=== PATIENT | female | born 1935 | race Caucasian/White ===

== ENCOUNTER → 2016-03-12 | Outpatient (CLI) | payer MEDICARE, OTHER ==
--- NOTE | 2016-03-12 14:07 | REP ---
Clinical: Preoperative assessment . Comparison: 09/09/2014 . Technique: PA and lateral. Findings: The mediastinum and cardiac silhouette are normal. The lung epstien are clear and without acute consolidation, effusion, or pneumothorax. Previously noted left lung nodule is unchanged. The skeletal structures are intact and normal. Impression: 1. No acute cardiopulmonary process. Left lung nodule unchanged. Signed by Hay Hawk MD 03/12/2016 01:58 P
[2016-03-12 14:08] LABS: ALBUMIN 3.8 GM/DL (3.2-5.2); ALBUMIN/GLOBULIN RATIO 1.27 (1.00-1.93); BILIRUBIN,TOTAL 0.5 MG/DL (0.2-1.0); CALCIUM LEVEL 8.6 MG/DL (8.8-10.2); CREATININE FOR GFR 1.13 MG/DL (0.55-1.02); GLOMERULAR FILTRATION RATE 49.1 (>32); POTASSIUM SERUM 4.5 MEQ/L (3.5-5.1); TOTAL PROTEIN 6.8 GM/DL (6.4-8.2)
--- NOTE | 2016-03-13 09:20 | ECGEPIP ---
Stationary ECG Study [facility] Test Date: 2016-03-12 Pat Name: ERIKA SOLIMAN Department: Room: - Gender: F Director Digital Communications: : 1935 Requested By: STROM Hurd Order Number: [id number] Reading MD: Arnel Tidwell Measurements Intervals [place] Rate: 67 P: 63 DC: 172 QRS: -25 QRSD: 97 T: 77 QT: 406 QTc: 430 Interpretive Statements SINUS RHYTHM BORDERLINE LEFT AXIS DEVIATION VOLTAGE CRITERIA FOR LVH NONSPECIFIC T-WAVE ABNORMALITY Comparison tracing not on file Electronically Signed On 03-13-2016 9:20:06 EST by Arnel Tidwell
== END ==
LOC: M LAB 13:08
PROVIDERS: ATTEND Ophthalmology
DX: Z01.812 Encounter for preprocedural laboratory examination (principal); H25.13 Age-related nuclear cataract, bilateral

== ENCOUNTER → 2016-03-29 | Day surgery (SDC) | payer MEDICARE, OTHER ==
--- NOTE | 2016-03-22 08:19 | CR ---
DATE OF CONSULTATION: 03/21/[address] Jose Raul Elam for left cataract extraction scheduled 03/29/2016 at [facility]. Dear Dr. Elam: Thank you for asking me to see Ms. Reyna Grewal in consultation prior to her cataract extractions. As you know, Ms. Grewal is an 80-year-old female with a past medical history of nonischemic dilated cardiomyopathy. Patient reports that she has been in her usual state of health but has found that her dyspnea and chest tightness are much improved since she was recently placed on Ranexa by cardiology. She reports that she is very active, doing her own laundry, mopping, vacuuming, grocery shopping, light yard work. Patient has a diagnosis of mild chronic obstructive pulmonary disease (COPD). She has Advair. She was using it irregularly but is now using it only as needed as her dyspneic symptoms are much improved on the Ranexa. Patient reports multiple stressors living with her as they age and have more challenges. She is excited that her daughter will be living next door to her on her property. The patient is hard of hearing. She has refused a hearing evaluation. Patient has had a decline in her eye vision and looks forward to her eye surgery. Patient denies any fevers or chills, nausea, vomiting, change in bowels, new rashes. REVIEW OF SYSTEMS: Otherwise, negative. PAST MEDICAL HISTORY: 1. Hypertension. 2. Heel spurs. 3. Total abdominal hysterectomy-bilateral salpingo-oophorectomy (MATEO-BSO) secondary to menorrhagia. 4. G5, P5. 5. Osteoarthritis (OA), degenerative joint disease (DJD). 6. Sinus allergies. 7. Adenomatous colonic polyp 10/2005 with recommendation to repeat 3 years, but followups have been refused by patient. Repeat colonoscopy 10/13/2015 showed polyps times [address] Lupe Peña with recommendation to repeat colonoscopy 3 years. 8. Plantar fasciitis. 9. Nonischemic dilated cardiomyopathy. Follows with [facility] with last appointment being 02/29/2016, at which point patient was found to be stable with recommendation to recheck in 6 months. Evaluation has included cardiac catheterization August 2015, which revealed nonocclusive coronary artery disease (CAD). Patient's ejection fraction was found to be 45%. 10. Mild obstructive pulmonary impairment. 10/2013 spirometry showing an FEV1 of 1.29, which was 70% of predicted, and a ratio of FEV1 to FVC of 0.63. 11. Lung nodules initially seen September [address] 04/2015 showing no change and consideration of a repeat chest CT 1 year. 12. Normal sleep study 12/15/2013. 13. Cataracts. PATIENT'S MEDICATIONS: - Advair Diskus 100/50 one inhaled twice a day as needed - baby aspirin daily - atorvastatin 40 mg daily - calcium plus D daily - carvedilol 12.5 by mouth twice a day - Benadryl as needed allergies - Losartan 50 mg daily - Pro Air two puffs four times a day as needed - Ranexa 500 mg by mouth twice a day - vitamin D3, 1000 international units daily ALLERGIES: Patient has no known drug allergies. SOCIAL HISTORY: Retired. . Never smoked. No alcohol. FAMILY HISTORY: Father of heart disease in his 60s. Mother had Alzheimer's and osteoporosis. A son had stomach cancer. A daughter had hypertension. PHYSICAL EXAM: She is a thin, elderly female, appearing younger than her stated age. Her weight is 141 with a body mass index (BMI) of 26.2. Blood pressure 142/86. Her heart rate is 74. Her oxygen saturation is 96%. HEENT: Examination is benign. She does wear eyeglasses. She is slightly hard of hearing. Her head is normocephalic. Pupils equal, reactive to light. Extraocular movements intact. Conjunctivae are not injected. Sclerae anicteric. Vision grossly normal. Tympanic membranes are slightly scarred bilaterally. She has upper and lower dentures. Posterior pharynx without inflammation. Neck is supple. No thyromegaly, jugular venous distention (JVD), carotid bruits. Respiratory: Slight decrease in breath sounds throughout. Some mild kyphosis. Breast: Exam deferred. Cardiovascular: Regular rate, rhythm. No significant murmur, rub, gallop. Genitourinary ()/Abdomen: Normoactive bowel sounds. Soft, nontender. No hepatosplenomegaly. Musculoskeletal: Some OA changes at the distal interphalangeal (DIP) joints. No pitting edema. No clubbing or cyanosis. Dermatologic: Multiple skin tags. Small seborrheic keratosis. Neurologically: Alert and oriented. Cranial nerves II-XII are intact. LABORATORY DATA: 03/12/2016 [facility]: Hemoglobin 13.7. Normal collagen function. Med profile: BUN and creatinine are 30 and 1.3 with a GFR of 49. Calcium slightly low at 8.6. Normal liver panel. On 12/20/2015, she had a normal CBC, magnesium, med profile, TSH, urinalysis, lipid. Total cholesterol was 210. Patient's chest x-ray 03/12/2016: No acute cardiopulmonary disease. Left lung nodule, unchanged as compared to 09/09/2014. EKG 03/12/2016: Normal sinus rhythm. Rate of 67. Left axis deviation at -25 degrees. Borderline left ventricular hypertrophy (LVH). No significant change compared to previous EKG. IMPRESSION: Ms. Miriam Grewal, 80-year-old female, multiple cardiovascular risk factors, including nonocclusive coronary artery disease, hyperlipidemia, hypertension, age, and family history but has no signs or symptoms indicative of cardiovascular ischemia and is very active for her age. Patient is felt to be at low risk for cardiovascular complications from the proposed surgical intervention, which can be further minimized by the following: PROBLEMS: 1. Nonischemic cardiomyopathy. She should take her Ranexa and carvedilol morning of surgery. I have recommended baby aspirin be maintained perioperatively and losartan be taken as usual the evening prior to surgery. 2. Coronary artery disease (CAD. As above, clinically stable per cardiology 02/29/2016. 3. Hypertension. As above. 4. Asthma, mild. She will only use her Advair Pro Air as needed. 5. Hyperlipidemia. She will take her statin as usual the evening prior to surgery. 6. Allergic rhinitis. She will only take Benadryl if needed. 7. Hard of hearing. Not interested in further evaluation/treatment. 8. Lung nodule. Consider repeat chest CT at next visit, though chest x-ray imaging shows stability for 2 years. Thank you for this consultation. Please call with any questions or concerns.
[~2016-03-29] VITALS: Ht 157.5 cm; Wt 64.0 kg
[~2016-03-29] MED LIST: ACETYLCHOLINE OPHTH SOLN 1% 2ML As Ordered ONE; ACETYLCHOLINE OPHTH SOLN 1% 2ML XX ONE; ADV100INH INH; ASPI1TAB PO; ATOR40TA PO; BALANCED SALT IRRIGATION SOL 500ML GLASS BOTTLE (FOR OR EYE COMPOUND) IR ONE; BALANCED SALT IRRIGATION SOLUTION 500ML BAG (FOR OR EYE MACHINE) As Ordered ONE; CALC600T57 PO; CARV12.5 PO; CEFUROXIME 1MG/0.1ML INTRACAMERAL INJ As Ordered ONE; CEFUROXIME 1MG/0.1ML INTRACAMERAL INJ ICAM ONE; HEALON DUET (HEALON 10MG/ML 0.55ML & HEALON ENDOCOAT 30MG/ML 0.85ML) As Ordered ONE; HEALON DUET (HEALON 10MG/ML 0.55ML & HEALON ENDOCOAT 30MG/ML 0.85ML) XX ONE; LIDOCAINE 0.75%/EPINEPHRINE 0.025% IN BSS 1ML SYR INTRACAMERAL (OR ONLY) As Ordered ONE; LIDOCAINE 0.75%/EPINEPHRINE 0.025% IN BSS 1ML SYR INTRACAMERAL (OR ONLY) XX ONE; LIDOCAINE 1% SDV 5 ML VIAL XX ONE; LIDOCAINE 4% INJ 5 ML AMP As Ordered ONE; LIDOCAINE 4% INJ 5 ML AMP XX ONE; LOSA50TA20 PO; MIDAZOLAM INJ 2 MG/2 ML VIAL (J2250) As Ordered ONE; OFLOXACIN 0.3 % (OCUFLOX) OPTH SOL 5ML OS ONE; PHENYLEPHRINE 2.5% OPHTH SOL 2ML OS ONE; POVIDONE-IODINE 5% OPHTH PREP SOL 30ML As Ordered ONE; PROPARACAINE 0.5% OPHTH SOL 15ML OS ONE; RANO5TAB PO; TOBRADEX OPHTH OINT 3.5 GM As Ordered ONE; TOBRADEX OPHTH OINT 3.5 GM XX ONE; TROPICAMIDE 1% OPHTH SOLN 2 ML OS ONE; fentaNYL 100 MCG/2 ML INJECTION (J3010) As Ordered ONE
[2016-03-29 11:10] VITALS: BP 122/60
--- NOTE | 2016-03-30 11:25 | RO ---
DATE OF PROCEDURE: 03/29/2016 PREOPERATIVE DIAGNOSIS: Visually significant nuclear sclerotic cataract left eye. POSTOPERATIVE DIAGNOSIS: Visually significant nuclear sclerotic cataract left eye. PROCEDURE: Cataract extraction with use of phacoemulsification and placement of intraocular lens ZCB00, 22.5 diopters, left eye. SURGEON: Jose Raul Elam DO OFFENDER JOB RETENTION SPECIALIST: ANESTHESIA: Local with monitored anesthesia care (MAC). COMPLICATIONS: None. POSTOPERATIVE CONDITION: Stable. INDICATION FOR SURGERY: Blurred vision left eye affecting patient's activities of daily living. DESCRIPTION OF PROCEDURE: The patient was seen in the preoperative area and properly identified. The correct operative eye was identified and marked. Attention was turned to that eye. The patient received topical antibiotics in the preoperative area. The patient then received topical dilating drops consisting of tropicamide and phenylephrine. The patient was then transferred to the operating room. The correct side was reidentified. The patient received topical anesthetics and antibiotics on the surface of the eye. The eye was prepped and draped in a sterile fashion. The upper and lower eyelids were isolated with Tegaderm tape, and the lids were held open with an adjustable speculum. Using a sideport blade, a paracentesis incision was made. Intraocular preservative-free lidocaine was then injected into the anterior chamber. Viscoelastic was then injected into the anterior chamber through the paracentesis. Using a 2.65 mm sharp-tipped keratome, the anterior chamber was entered via a temporal clear corneal incision. A continuous curvilinear capsulorrhexis was created with the aid of a 26-gauge cystotome and Utrata forceps. Hydrodissection was performed with balanced salt solution (BSS) on a blunt cannula until the nucleus was freely mobile. The crystalline lens was phacoemulsified and aspirated. Additional cohesive viscoelastic was placed into the capsular bag to deepen it. A ZCB00, 22.5 diopters lens was placed into the capsular bag and confirmed by visualizing the continuous curvilinear capsulorrhexis. Additional irrigation and aspiration was used to remove cortical material and remaining viscoelastic. The clear corneal incision was hydrated with BSS on a blunt cannula. The lens was well positioned. The incisions were then tested for leaks and found to be negative. The eye was then palpated for appropriate pressure and adjusted accordingly with BSS. The eyelid speculum was then carefully removed. Tobradex ointment was placed in the eye. An eye patch and shield were then secured over the eye. The patient tolerated the procedure well and was discharged to the recovery unit in a stable condition. CITLALLI
== END | disposition home or self-care (01) ==
LOC: M SDC 07:19
PROVIDERS: ATTEND Ophthalmology
DX: H25.11 Age-related nuclear cataract, right eye (principal); I10 Essential (primary) hypertension; E78.5 Hyperlipidemia, unspecified; Z79.82 Long term (current) use of aspirin; Z79.899 Other long term (current) drug therapy
CPT/HCPCS: 66984; J2250; J3010; V2632

== ENCOUNTER → 2016-04-26 | Day surgery (SDC) | payer MEDICARE, OTHER ==
--- NOTE | 2016-04-23 23:11 | CR ---
DATE OF CONSULTATION: 04/17/2016 The patient is scheduled for cataract surgery with Dr. Elam at [facility]. Dear Dr. Elam: Thank you for asking me to see Ms. Reyna Grewal in consultation prior to her right cataract extraction scheduled shortly. As you know, Ms. Grewal is an 80-year-old female with a past medical history of nonischemic dilated cardiomyopathy who reports that her general health has been improved since being on Ranexa for angina from cardiology. She reports her activity tolerance is much improved, her dyspnea has improved and she is doing more activities such as cleaning the house, getting ready for a garage sale, moving furniture. She denies any chest pain, palpitations, syncope, or pre-syncope. She has not had any upper respiratory infection (URI) symptoms, denying any fevers or chills, postnasal drip, cough with sputum production. She is only using her ProAir as needed. The patient reports good results from cataract extraction done in March and looks forward to having her right cataract extraction done as well. REVIEW OF SYSTEMS: Otherwise, negative. PAST MEDICAL HISTORY 1. Hypertension. 2. Heel spurs. 3. Total abdominal hysterectomy-bilateral salpingo-oophorectomy (MATEO-BSO) secondary to menorrhagic. 4. G5, P5. 5. Osteoarthritis (OA), degenerative joint disease (DJD). 6. Sinus allergies. 7. Adenomatous colonic polyp 10/2005 with repeat colonoscopy 10/13/2015 showing polyps times four with recommendation to repeat 3 years. 8. Plantar fasciitis. 9. Non-ischemic dilated cardiomyopathy. Follows with [facility] with last appointment being 02/29/2016, at which point the patient was felt to be stable but was empirically placed on Ranexa. The patient's recent cardiac evaluation includes a catheterization 08/2015, which revealed nonocclusive coronary artery disease (CAD). Her ejection fraction was 45%. 10. Mild chronic obstructive pulmonary disease (COPD) with spirometry 10/2013 showing an FEV1 of 1.29 (70% of predicted) and a ratio of FEV1 to FVC of 0.63. 11. Lung nodules initially seen 09/[address] 04/2015 showing no change and recommendation to consider repeat in 1 year. Chest x-ray March 2016 showed no change. 12. Normal sleep study 12/2013. 13. Bilateral cataracts status post left cataract extraction 03/2016. PATIENT'S MEDICATIONS: - Ranexa 500 mg by mouth twice daily - atorvastatin 40 mg daily - baby aspirin daily - losartan 50 mg nightly - carvedilol 12.5 mg by mouth twice daily - Advair one inhaled twice daily - ProAir as needed - Benadryl as needed - calcium plus D daily - vitamin D daily ALLERGIES: The patient has no known drug allergies. SOCIAL HISTORY: Retired, , never smoked. FAMILY HISTORY: Father of heart disease in 60s. Mother had Alzheimer's, osteoporosis. Son had stomach cancer. Daughter had hypertension. PHYSICAL EXAMINATION: Thin female appearing younger than her stated age in no acute distress. Vital signs are weight 139 with a body mass index (BMI) of 25.9, oxygen saturation is 92% after exertion, blood pressure 126/70, heart rate is 68 and regular. HEENT exam: Head is normocephalic. Neck is supple. Pupils equal, reactive to light. Extraocular movements are intact. She does wear eyeglasses. Oropharynx is benign. She has upper and lower dentures. Neck is supple. No thyromegaly, jugular venous distention (JVD), or carotid bruits. Respiratory: Slight decrease in breath sounds throughout. She has kyphosis. She has no expiratory wheezes. Cardiovascular: Regular rate and rhythm. No murmur, rub, gallop. Abdomen: Normoactive bowel sounds, soft, nontender. No hepatosplenomegaly. Musculoskeletal: Some osteoarthritic changes of the distal interphalangeal (DIP) joints. No pitting edema. Dermatologic: Multiple seborrheic keratosis, skin tags. Neurologic: Alert and oriented with cranial nerves II-XII intact. Laboratory data from 03/12/2016 is reviewed. Normal hemoglobin, collagen function. Med profile shows a GFR 49, slightly low calcium at 8.6, normal liver panel. On 12/20/2015, she had a normal CBC, magnesium, med profile, TSH, UA, lipid with total cholesterol 210. Chest x-ray 03/12/2016: No acute cardiopulmonary disease. Left lung nodule unchanged. EKG 03/12/2016: Normal sinus rhythm, rate of 67, left axis deviation at minus 25 degrees, borderline LVH. No significant change compared to previous EKG. IMPRESSION: Ms. Miriam Grewal is a 80-year-old female with multiple cardiovascular risk factors including age, hyperlipidemia, hypertension, family history, cardiac catheterization showing nonocclusive coronary artery disease with no signs or symptoms indicative of cardiovascular ischemia and is in fact feeling better since being placed on Ranexa and is very active. The patient is felt to be at low risk for cardiovascular complications from the proposed surgical intervention which can be further minimized by the followin. Nonischemic cardiomyopathy. Take Ranexa and carvedilol a.m. of surgery. Hold aspirin 5 days prior to surgical intervention. Take losartan as usual the evening prior to surgery. 2. Coronary artery disease, clinically asymptomatic; in fact, improved in terms of angina with the Ranexa. Continue multidrug regimen as above. 3. Hypertension, as above. 4. Asthma. She will use her Advair and ProAir as needed. 5. Hyperlipidemia. Take statin as usual the evening prior to surgery. 6. Allergic rhinitis. Take Benadryl only as needed. 7. Lung nodule. Chest x-ray in March showed no change. Patient resistant to CT imaging but will agree to it in September. She is clinically asymptomatic. Thank you very much for this consultation. Please call with questions or concerns.
[~2016-04-26] VITALS: Ht 157.5 cm; Wt 64.0 kg
[~2016-04-26] MED LIST changes: +ACETAMINOPHEN 325 MG TAB PO PRN; -ACETYLCHOLINE OPHTH SOLN 1% 2ML XX ONE; -BALANCED SALT IRRIGATION SOL 500ML GLASS BOTTLE (FOR OR EYE COMPOUND) IR ONE; -CEFUROXIME 1MG/0.1ML INTRACAMERAL INJ ICAM ONE; -HEALON DUET (HEALON 10MG/ML 0.55ML & HEALON ENDOCOAT 30MG/ML 0.85ML) XX ONE; -LIDOCAINE 0.75%/EPINEPHRINE 0.025% IN BSS 1ML SYR INTRACAMERAL (OR ONLY) XX ONE; -LIDOCAINE 1% SDV 5 ML VIAL XX ONE; -LIDOCAINE 4% INJ 5 ML AMP XX ONE; +OFLOXACIN 0.3 % (OCUFLOX) OPTH SOL 5ML OD ONE; -OFLOXACIN 0.3 % (OCUFLOX) OPTH SOL 5ML OS ONE; +PHENYLEPHRINE 2.5% OPHTH SOL 2ML OD ONE; -PHENYLEPHRINE 2.5% OPHTH SOL 2ML OS ONE; +PROPARACAINE 0.5% OPHTH SOL 15ML OD ONE; -PROPARACAINE 0.5% OPHTH SOL 15ML OS ONE; -TOBRADEX OPHTH OINT 3.5 GM XX ONE; +TRIMETHOBENZAMIDE 300 MG CAP PO PRN; +TROPICAMIDE 1% OPHTH SOLN 2 ML OD ONE; -TROPICAMIDE 1% OPHTH SOLN 2 ML OS ONE
[2016-04-26 09:52] VITALS: BP 142/65
--- NOTE | 2016-04-26 17:10 | RO ---
DATE OF PROCEDURE: 04/26/2016 PREOPERATIVE DIAGNOSIS: Visually significant nuclear sclerotic cataract right eye. POSTOPERATIVE DIAGNOSIS: Visually significant nuclear sclerotic cataract right eye. PROCEDURE: Cataract extraction with use of phacoemulsification and placement of intraocular lens ZCB00 23.0 diopters, right eye. SURGEON: Jose Raul Elam DO HIDE AND SKIN PROCESSING WORKER: ANESTHESIA: Local with monitored anesthesia care (MAC). COMPLICATIONS: None. POSTOPERATIVE CONDITION: Stable. INDICATION FOR SURGERY: Blurred vision right eye affecting patient's activities of daily living. DESCRIPTION OF PROCEDURE: The patient was seen in the preoperative area and properly identified. The correct operative eye was identified and marked. Attention was turned to that eye. The patient received topical antibiotics in the preoperative area. The patient then received topical dilating drops consisting of tropicamide and phenylephrine. The patient was then transferred to the operating room. The correct side was reidentified. The patient received topical anesthetics and antibiotics on the surface of the eye. The eye was prepped and draped in a sterile fashion. The upper and lower eyelids were isolated with Tegaderm tape, and the lids were held open with an adjustable speculum. Using a sideport blade, a paracentesis incision was made. Intraocular preservative-free lidocaine was then injected into the anterior chamber. Viscoelastic was then injected into the anterior chamber through the paracentesis. Using a 2.65 mm sharp-tipped keratome, the anterior chamber was entered via a temporal clear corneal incision. A continuous curvilinear capsulorrhexis was created with the aid of a 26-gauge cystotome and Utrata forceps. Hydrodissection was performed with balanced salt solution (BSS) on a blunt cannula until the nucleus was freely mobile. The crystalline lens was phacoemulsified and aspirated. Additional cohesive viscoelastic was placed into the capsular bag to deepen it. A ZCB00 23.0 diopter lens was placed into the capsular bag and confirmed by visualizing the continuous curvilinear capsulorrhexis. Additional irrigation and aspiration was used to remove cortical material and remaining viscoelastic. The clear corneal incision was hydrated with BSS on a blunt cannula. The lens was well positioned. The incisions were then tested for leaks and found to be negative. The eye was then palpated for appropriate pressure and adjusted accordingly with BSS. The eyelid speculum was then carefully removed. Tobradex ointment was placed in the eye. An eye patch and shield were then secured over the eye. The patient tolerated the procedure well and was discharged to the recovery unit in a stable condition. CITLALLI
== END | disposition home or self-care (01) ==
LOC: M SDC 07:00
PROVIDERS: ATTEND Ophthalmology
DX: H25.11 Age-related nuclear cataract, right eye (principal); I10 Essential (primary) hypertension; E78.5 Hyperlipidemia, unspecified; Z79.82 Long term (current) use of aspirin; Z79.899 Other long term (current) drug therapy
CPT/HCPCS: 66984; J2250; J3010; V2632

== ENCOUNTER → 2017-10-08 | Outpatient (REF) | payer MEDICARE | LOC: M LAB REF 13:24 | DX: N39.0 Urinary tract infection, site not specified (principal) | CPT/HCPCS: 87186 ==

== ENCOUNTER → 2018-01-10 | Outpatient (REF) | payer MEDICARE ==
[2018-01-10 17:21] LABS: APPEARANCE, URINE HAZY (CLEAR); BACTERIA, URINE AUTO 2+ (NEGATIVE); BILIRUBIN, URINE AUTO NEGATIVE (NEGATIVE); BLOOD, URINE BLOOD NEGATIVE (NEGATIVE); COLOR, URINE YELLOW (YELLOW); GLUCOSE, URINE (UA) AUTO NEGATIVE (NEGATIVE); KETONE, URINE AUTO NEGATIVE (NEGATIVE); LEUKOCYTE ESTERASE, URINE AUTO 2+ (NEGATIVE); MUCUS, URINE SMALL (NEGATIVE); NITRITE, URINE AUTO NEGATIVE (NEGATIVE); PROTEIN, URINE AUTO NEGATIVE (NEGATIVE); RBC, URINE AUTO 2 /HPF (0-3); SPECIFIC GRAVITY URINE AUTO 1.017 (1.002-1.035); SQUAMOUS EPITHELIAL CELL UR AU 0 /HPF (0-6); UROBILINOGEN, URINE AUTO 0.2 mg/dL (0.0-2.0); WBC, URINE AUTO 77 /HPF (0-3)
== END ==
LOC: M LAB REF 16:26
DX: R31.9 Hematuria, unspecified (principal)
CPT/HCPCS: 81001

== ENCOUNTER → 2020-08-16 | Outpatient (CLI) | payer MEDICARE ==
[~2020-08-16] MED LIST changes: -ACETAMINOPHEN 325 MG TAB PO PRN; -ACETYLCHOLINE OPHTH SOLN 1% 2ML As Ordered ONE; -ASPI1TAB PO; +ASPI81TA26 PO; -ATOR40TA PO; +ATOR40TA75 PO; -BALANCED SALT IRRIGATION SOLUTION 500ML BAG (FOR OR EYE MACHINE) As Ordered ONE; -CEFUROXIME 1MG/0.1ML INTRACAMERAL INJ As Ordered ONE; -HEALON DUET (HEALON 10MG/ML 0.55ML & HEALON ENDOCOAT 30MG/ML 0.85ML) As Ordered ONE; -LIDOCAINE 0.75%/EPINEPHRINE 0.025% IN BSS 1ML SYR INTRACAMERAL (OR ONLY) As Ordered ONE; -LIDOCAINE 4% INJ 5 ML AMP As Ordered ONE; -LOSA50TA20 PO; +LOSA50TA88 PO; -MIDAZOLAM INJ 2 MG/2 ML VIAL (J2250) As Ordered ONE; -OFLOXACIN 0.3 % (OCUFLOX) OPTH SOL 5ML OD ONE; -PHENYLEPHRINE 2.5% OPHTH SOL 2ML OD ONE; -POVIDONE-IODINE 5% OPHTH PREP SOL 30ML As Ordered ONE; -PROPARACAINE 0.5% OPHTH SOL 15ML OD ONE; +RANO500T7 PO; -RANO5TAB PO; -TOBRADEX OPHTH OINT 3.5 GM As Ordered ONE; -TRIMETHOBENZAMIDE 300 MG CAP PO PRN; -TROPICAMIDE 1% OPHTH SOLN 2 ML OD ONE; -fentaNYL 100 MCG/2 ML INJECTION (J3010) As Ordered ONE
--- NOTE | 2020-08-16 11:53 | REP ---
INDICATION: PAIN. COMPARISON: None TECHNIQUE: AP and lateral views FINDINGS: There is mild to moderate anterior disc space narrowing at every level with mild anterior lipping. Vertebral body height and alignment is within normal limits. The pedicles are intact bilaterally. IMPRESSION: Chronic changes as described above. <Electronically signed by Gianfranco Valero > 08/16/20 [id number]
== END ==
LOC: M WUC 10:23
PROVIDERS: ATTEND Internal Medicine
DX: M54.6 Pain in thoracic spine (principal)